=== PATIENT | male | born 1950 | race Caucasian/White ===

== ENCOUNTER 2017-01-11 12:35 | Inpatient (IN) | payer OTHER ==
[~2017-01-11] VITALS: Ht 177.8 cm; Wt 83.0 kg
[2017-01-11] MEDS ORDERED: LORAZEPAM 2 MG/ML VIAL ONE (12:39)
[2017-01-11] MEDS ORDERED: LORAZEPAM 2 MG/ML VIAL IV ONE (13:00)
--- NOTE | 2017-01-11 13:11 | RAD ---
Portable chest, 01/11/2017: History: Altered mental status Comparison is made to a study from 02/08/2016. The heart size and pulmonary vascularity are normal. There is mild tortuosity of the thoracic aorta. No pulmonary infiltrates are seen. There is no evidence of pleural fluid. IMPRESSION: No acute cardiopulmonary abnormality is detected.
--- NOTE | 2017-01-11 13:16 | RAD ---
Indication: Seizure. Altered mental status. Previous stroke. Technique: Noncontrast CT head was obtained. Comparison is from February 10, 2016. One or more of the following individualized dose reduction techniques were utilized for this examination: 1. Automated exposure control 2. Adjustment of the mA and/or kV according to patient size 3. Use of iterative reconstruction technique Findings: Infarcts involving the posterior right frontal, the right parietal, and the right temporal lobe have a chronic appearance although extent of infarct is increased from January. No definite acute infarct is identified. There is mild ex vacuo dilation of the right lateral ventricle. There is brain parenchymal volume loss and mild probable small vessel ischemic disease. There is no acute intracranial hemorrhage or extra-axial fluid collection. There is no mass effect or midline shift. There are vascular calcifications. The paranasal sinuses are clear. Impression: 1. Right MCA distribution infarct is well-defined and has a chronic appearance although has increased in size from the January 2016 exam. There is no CT evidence of an acute infarct. 2. Brain parenchymal volume loss and mild probable small vessel ischemic disease. 3. Consider MRI with seizure protocol if further workup is required.
[2017-01-11 13:21] LABS: INR 1.2 (0.8-1.1); PROTHROMBIN TIME PATIENT 14.7 SEC (11.7-14.0)
[2017-01-11 13:24] LABS: BASO # 0.1 x10^3/uL (0.0-0.2); BASO % 1 % (0-3); EOS % 3 % (0-3); HEMATOCRIT 47.3 % (39.0-53.0); HEMOGLOBIN 14.8 g/dL (13.0-17.5); LYMPH % 45 % (24-48); MEAN CORPUSCULAR HEMOGLOBIN 30 pg (25-35); MEAN CORPUSCULAR HGB CONC 31 g/dL (31-37); MEAN CORPUSCULAR VOLUME 97 fL (79-100); MONO % 7 % (0-9); NEUT % 45 % (31-73); PLATELET COUNT 230 x10^3/uL (140-400); RED BLOOD COUNT 4.88 x10^6/uL (4.30-5.70); RED CELL DISTRIBUTION WIDTH 14.6 % (11.5-14.5); WHITE BLOOD COUNT 15.5 x10^3/uL (4.0-11.0)
--- NOTE | 2017-01-11 13:50 | PHYS DOC ---
Past Medical History Past Medical History: CVA (RUE weakness) Additional Past Surgical Histo: knee surgery Alcohol Use: None Drug Use: None Adult General Chief Complaint Chief Complaint: NEURO SYMPTOMS/DEFICITS HPI HPI Patient is a 66 year old male who presents by EMS for witnessed new seizure. He ate lunch with and was in normal state of health. He then was in car and head head deviation to left and started having full body shaking. He was unresponsive and EMS was called. This lasted less than 5 min. and EMS are historians. He does not add to history. states no prior seizures. He had a 2nd seizure upon arrival lasting approx 1-2 min and self-aborted. He was given ativan IV 2mg at the end of this seizure. Review of Systems Review of Systems Unable to obtain secondary to altered mental status Current Medications Current Medications Current Medications Medications (Trade) Dose Ordered Sig/Robina Start Time Stop Time Status Last Admin Dose Admin Lorazepam (Ativan) 2 mg STK-MED ONCE 01/11/17 12:39 01/11/17 12:40 DC Lorazepam 2 mg 2 mg 1X ONCE 01/11/17 13:00 01/11/17 13:01 DC 01/11/17 12:41 2 MG Sodium Chloride (Iv Sodium Chloride 0.9% 1000ml Bag) 1,000 ml @ 1,000 mls/hr 1X ONCE 01/11/17 14:00 01/11/17 17:21 DC 01/11/17 13:38 1,000 MLS/HR Allergies Allergies Allergies Coded Allergies Type Severity Reaction Last Updated Verified No Known Drug Allergies 05/20/14 No Physical Exam Physical Exam Constitutional: Well developed, well nourished, no acute distress, non-toxic appearance. [] HENT: Normocephalic, atraumatic, bilateral external ears normal, oropharynx moist, no oral exudates, nose normal. [] Eyes: PERRLA, EOMI, conjunctiva normal, no discharge. [] Neck: Normal range of motion, no tenderness, supple. [] Cardiovascular:Heart rate regular rhythm [] Lungs & Thorax: Bilateral breath sounds clear to auscultation [] Abdomen: Bowel sounds normal, soft, no tenderness. [] Skin: Warm, dry, no erythema, no rash. [] Back: No tenderness, no CVA tenderness. [] Extremities: No tenderness, ROM intact, no edema. Moves RUE and bilateral legs to painful stimuli [] Neurologic: Opens eyes to pain, localizes pain, moans to pain. [] Psychologic: Unable to assess to altered mental status. [] Current Patient Data Vital Signs Vital Signs Date Time Temp Pulse Resp B/P Pulse Ox O2 Delivery O2 Flow Rate FiO2 01/11/17 15:00 110 26 164/76 91 Nasal Cannula 2 01/11/17 12:35 97.9 97.9 Lab Values Laboratory Tests Test 01/11/17 12:40 White Blood Count 15.5x10^3/uL (4.0-11.0) H Red Blood Count 4.88x10^6/uL (4.30-5.70) Hemoglobin 14.8g/dL (13.0-17.5) Hematocrit 47.3% (39.0-53.0) Mean Corpuscular Volume 97fL (79-100) Mean Corpuscular Hemoglobin 30pg (25-35) Mean Corpuscular Hemoglobin Concent 31g/dL (31-37) Red Cell Distribution Width 14.6% (11.5-14.5) H Platelet Count 230x10^3/uL (140-400) Neutrophils (%) (Auto) 45% (31-73) Lymphocytes (%) (Auto) 45% (24-48) Monocytes (%) (Auto) 7% (0-9) Eosinophils (%) (Auto) 3% (0-3) Basophils (%) (Auto) 1% (0-3) Neutrophils # (Auto) 6.9x10^3uL (1.8-7.7) Lymphocytes # (Auto) 7.0x10^3/uL (1.0-4.8) H Monocytes # (Auto) 1.0x10^3/uL (0.0-1.1) Eosinophils # (Auto) 0.4x10^3/uL (0.0-0.7) Basophils # (Auto) 0.1x10^3/uL (0.0-0.2) Prothrombin Time 14.7SEC (11.7-14.0) H Prothrombin Time INR 1.2 (0.8-1.1) H PTT 23SEC (24-38) L Sodium Level 154mmol/L (136-145) H Potassium Level 5.4mmol/L (3.5-5.1) H Chloride Level 111mmol/L (98-107) H Carbon Dioxide Level 17mmol/L (21-32) L Anion Gap 26 (6-14) H Blood Urea Nitrogen 39mg/dL (8-26) H Creatinine 2.4mg/dL (0.7-1.3) H Estimated GFR (Cockcroft-Gault) 27.1 Glucose Level 165mg/dL (70-99) H Calcium Level 10.7mg/dL (8.5-10.1) H Magnesium Level 2.4mg/dL (1.8-2.4) Total Bilirubin 0.4mg/dL (0.2-1.0) Direct Bilirubin < 0.1mg/dL (0.0-0.2) Aspartate Amino Transferase (AST) 22U/L (15-37) Alanine Aminotransferase (ALT) 32U/L (16-63) Alkaline Phosphatase 38U/L (46-116) L Ammonia 225mcmol/L (11-34) H Troponin I Quantitative 0.030ng/mL (0.000-0.055) LA-Kcg-N-Type Natriuretic Peptide 491pg/mL (0-124) H Total Protein 8.9g/dL (6.4-8.2) H Albumin 4.3g/dL (3.4-5.0) Laboratory Tests 01/11/17 12:40 Laboratory Tests 01/11/17 12:40 EKG EKG EKG as interpreted by me as sinus tachycardia, rate 104, no ST-T changes, normal intervals, no ectopy Radiology/Procedures Radiology/Procedures Chest xray as interpreted by me with no acute cardiopulmonary disease process Head CT without contrast Impression: 1. Right MCA distribution infarct is well-defined and has a chronic appearance although has increased in size from the January 2016 exam. There is no CT evidence of an acute infarct. 2. Brain parenchymal volume loss and mild probable small vessel ischemic disease. 3. Consider MRI with seizure protocol if further workup is required. DICTATED and SIGNED BY: RICK ANDUJAR MD DATE: 01/11/17 7308 Course & Med Decision Making Course & Med Decision Making Pertinent Labs and Imaging studies reviewed. (See chart for details) Has new onset seizure activity. He is not back to baseline, but is making improvements in mental status with spontaneous movement, eye opening and clear voice. He is responding to and following commands but is still confused. Imaging as above. Labs with gap acidosis and acute on chronic renal impairment. Will admit for further monitoring. Discussed case with Dr. Noble, who will admit. Neurology consult placed. Renetta Disclaimer Renetta Disclaimer This electronic medical record was generated, in whole or in part, using a voice recognition dictation system. Departure Departure Impression: Primary Impression: New onset seizure Disposition: ADMITTED INPATIENT Condition: GUARDED Referrals: EDI ROCHA MD (PCP) Tj SRINIVASAN MD Jan 11, 2017 13:50
[2017-01-11] MEDS ORDERED: IV NORMAL SALINE 1000ML BAG 1,000 ML IV ONE (14:00)
[2017-01-11 14:06] LABS: ANION GAP 26 (6-14); BLOOD UREA NITROGEN 39 mg/dL (8-26); CALCIUM 10.7 mg/dL (8.5-10.1); CARBON DIOXIDE 17 mmol/L (21-32); CHLORIDE 111 mmol/L (98-107); CREATININE 2.4 mg/dL (0.7-1.3); GFR 27.1; GLUCOSE 165 mg/dL (70-99); POTASSIUM 5.4 mmol/L (3.5-5.1); SODIUM 154 mmol/L (136-145)
[2017-01-11 14:39] LABS: ALBUMIN 4.3 g/dL (3.4-5.0); ALK PHOS 38 U/L (46-116); ALT (SGPT) 32 U/L (16-63); AST (SGOT) 22 U/L (15-37); TOTAL BILIRUBIN 0.4 mg/dL (0.2-1.0); TOTAL PROTEIN 8.9 g/dL (6.4-8.2)
[2017-01-11 14:40] LABS: DIRECT BILIRUBIN < 0.1 mg/dL (0.0-0.2); MAGNESIUM 2.4 mg/dL (1.8-2.4)
--- NOTE | 2017-01-11 14:58 | EKG ---
[facility] [address] [place] [address] Test Date: 2017-01-11 Test Time: 14:12:21 Pat Name: MIKE PRITCHARD Department: Room: Gender: M Lehr Attendant: : 1950 Requested By: Tj SRINIVASAN Order Number: [id number] Reading MD: Gloria Virgen Measurements Intervals [place] Rate: 104 P: -8 AK: 146 QRS: -42 QRSD: 80 T: 115 QT: 340 QTc: 453 Interpretive Statements SINUS TACHYCARDIA ABNORMAL LEFT AXIS DEVIATION LEFT ANTERIOR FASCICULAR BLOCK LVH WITH REPOLARIZATION ABNORMALITY Electronically Signed On 01-14-2017 19:50:11 CDT by Gloria Virgen
[2017-01-11] MEDS ORDERED: ONDANSETRON PF 4 MG/2 ML VIAL. IV PRN ×2 (15:30→19:00)
[2017-01-11] MEDS ORDERED: ACETAMINOPHEN 325 MG TABLET. PO PRN ×2 (15:30→19:00)
[2017-01-11] MEDS ORDERED: FENTANYL PF 100 MCG/2 ML VIAL. IV PRN (15:30)
[2017-01-11] MEDS ORDERED: IV NORMAL SALINE 1000ML BAG 1,000 ML IV SCH (16:00)
--- NOTE | 2017-01-11 16:24 | ACF ---
Admission Forms Criteria SEIZURE Clinical Indications for Admission to Inpatient Care (Place 'X' for any and all applicable criteria): Admission is indicated for seizure and ANY ONE of the following(1)(2)(3)(4)(5): [X]I. Inpatient admission required rather than observation care (Also use Seizure: Observation Care Criteria as appropriate) because of ANY ONE of the following: [ ]a) Altered mental status that is severe or persistent [ ]b) New focal neurologic deficit that is severe or persistent [ ]c) Metabolic disorder (eg, hypoglycemia, hyponatremia) that is severe or persistent [ ]d) Recurrent seizure [ ]e) Outpatient antiseizure regimen cannot be established (eg , patient cannot tolerate medication, initiation requires inpatient care) [X]f) Need for ongoing intravenous infusion of antiseizure medication [ ]g) Cardiac arrhythmias of immediate concern [ ]h) Cerebral bleeding, hydrocephalus, or vasospasm monitoring (14) [ ]i) Increased intracranial pressure or cerebral edema monitoring (15) [ ]j) Other treatment or monitoring requiring inpatient admission [ ]II. Status epilepticus [A] or repetitive seizures not controlled with emergent treatment (6)(8) [ ]III. Brain disorder (eg, tumor, edema, and hydrocephalus) that requiring monitoring or intervention available only at inpatient level of care. [ ]IV. Brain insult (eg, severe trauma, stroke, drug toxicity, or withdrawal) that requires monitoring or intervention available only at inpatient level of care (10)(11) Extended stay beyond goal length of stay may be needed for (22) [ ]a) Complications of status epilepticus [ ]b) Refractory status epilepticus [ ]c) Etiology-specific therapy for conditions such as ST[employer] LOSS [employer]ION MANAGER infection, head injury,eclampsia, severe metabolic abnormalities, and brain tumor [ ]d) Residual neurologic damage, [ ]e) Initiation of significant change to anticonvulsant treatment [ ]f) Older patients (65 years or older) [ ]g) Patient requiring intubation (eg, to protect airway) The original [employer] content created by [employer] has been revised. The portions of the content which have been revised are identified through the use of italic text or in bold, and [facility] [employer] has neither reviewed nor approved the modified material. All other unmodified content is copyright [facility] [employer]. Please see references footnoted in the original [facility] edition 2016 Admission Criteria Met?: Yes ROULA CROFT Jan 11, 2017 16:24
--- NOTE | 2017-01-11 16:49 | PDOC2 ---
NEUROLOGY CONSULT Date of Admission Date of Admission DATE: 01/11/17 TIME: 16:44 Reason for Consult Reason for Consult: Seizures Referring Physician Referring Physician: Dr. Noble PCP: Dr. 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 He had 2 seizures today. The first one occurred while he was in a car , his head turned to the left. There was convulsive activity, incontinence, and postictal state. Head turned to the left. The second occurred in the emergency department. There is no prior history of seizures. Past Medical History Cardiovascular: HTN, Hyperlipidemia CENTRAL NERVOUS SYSTEM: CVA Past Surgical History Past Surgical History: Other (knee) Family History Family History: No pertinent hx Social History Social History , quit smoking, no alcohol Current Medications Current Medications Current Medications Lorazepam (Ativan) 2 mg STK-MED ONCE .ROUTE ; Start 01/11/17 at 12:39; Stop at 12:40; Status DC Lorazepam 2 mg 2 mg 1X ONCE IV ; Start 01/11/17 at 13:00; Stop 01/11/17 at 13: 01; Status DC Sodium Chloride (Iv Sodium Chloride 0.9% 1000ml Bag) 1,000 ml @ 1,000 mls/hr 1X ONCE IV Last administered on 01/11/17t 13:38; Start 01/11/17 at 14:00; Stop 01/11/17 at 14:59; Status DC Ondansetron HCl (Zofran) 4 mg PRN Q8HRS PRN IV NAUSEA/VOMITING; Start 01/11/17 at 15:30; Stop 01/12/17 at 15:29 Fentanyl Citrate 50 mcg 50 mcg PRN Q2HR PRN IV PAIN; Start 01/11/17 at 15:30; Stop 01/12/17 at 15:29 Sodium Chloride (Iv Sodium Chloride 0.9% 1000ml Bag) 1,000 ml @ 150 mls/hr Q6H40M IV ; Start 01/11/17 at 16:00; Stop 01/12/17 at 15:59 Acetaminophen (Tylenol) 650 mg PRN Q4HRS PRN PO FEVER; Start 01/11/17 at 15:30 ; Stop 01/12/17 at 15:29 Allergies Allergies: Coded Allergies: No Known Drug Allergies (Unverified , 05/20/14) ROS Review of System Patient denies fevers, chills, weight loss, dyspnea, angina, abdominal pain, change in bowels, or dysuria. 14 point review of systems is negative. Physical Exam Physical Examination PHYSICAL EXAMINATION: Vital signs: see above. General appearance is normal and in no acute distress. He is shivering HEENT: Normocephalic and nontraumatic. Eyes, nose, ears, and throat are unremarkable. Neck is supple. No lymphadenopathy. No bruits are heard over the carotid artery. No crepitus. NEUROLOGICAL EXAMINATION: Mental Status Examination: Alert. Oriented to time, place, and person. Answers questions and follows commends. Pupils are equal round and reactive to light and accommodation. Extraocular movements are intact. Visual field exam shows no defect on the direct confrontation. Left central facial weakness. Uvula in the midline and the soft palate elevated symmetrically. No deviation of the tongue to any direction. Gross hearing is normal. Shoulder shrug normal. There is left 3/5 spastic hemiparesis. Deep tendon reflexes are 2+ all around. Plantar reflex is extensor on the left. Alternative movements are accurate. Gait not tested. Sensory exam shows no deficits. No cerebellar signs are elicited. Vitals VITALS Vital Signs Date Time Temp Pulse Resp B/P Pulse Ox O2 Delivery O2 Flow Rate FiO2 01/11/17 12:35 97.9 114 28 164/96 99 NonRebreather Mask 15 97.9 Labs Labs Laboratory Tests Test 01/11/17 12:40 White Blood Count 15.5x10^3/uL (4.0-11.0) Red Blood Count 4.88x10^6/uL (4.30-5.70) Hemoglobin 14.8g/dL (13.0-17.5) Hematocrit 47.3% (39.0-53.0) Mean Corpuscular Volume 97fL (79-100) Mean Corpuscular Hemoglobin 30pg (25-35) Mean Corpuscular Hemoglobin Concent 31g/dL (31-37) Red Cell Distribution Width 14.6% (11.5-14.5) Platelet Count 230x10^3/uL (140-400) Neutrophils (%) (Auto) 45% (31-73) Lymphocytes (%) (Auto) 45% (24-48) Monocytes (%) (Auto) 7% (0-9) Eosinophils (%) (Auto) 3% (0-3) Basophils (%) (Auto) 1% (0-3) Neutrophils # (Auto) 6.9x10^3uL (1.8-7.7) Lymphocytes # (Auto) 7.0x10^3/uL (1.0-4.8) Monocytes # (Auto) 1.0x10^3/uL (0.0-1.1) Eosinophils # (Auto) 0.4x10^3/uL (0.0-0.7) Basophils # (Auto) 0.1x10^3/uL (0.0-0.2) Prothrombin Time 14.7SEC (11.7-14.0) Prothromb Time International Ratio 1.2 (0.8-1.1) Activated Partial Thromboplast Time 23SEC (24-38) Sodium Level 154mmol/L (136-145) Potassium Level 5.4mmol/L (3.5-5.1) Chloride Level 111mmol/L (98-107) Carbon Dioxide Level 17mmol/L (21-32) Anion Gap 26 (6-14) Blood Urea Nitrogen 39mg/dL (8-26) Creatinine 2.4mg/dL (0.7-1.3) Estimated GFR (Cockcroft-Gault) 27.1 Glucose Level 165mg/dL (70-99) Calcium Level 10.7mg/dL (8.5-10.1) Magnesium Level 2.4mg/dL (1.8-2.4) Total Bilirubin 0.4mg/dL (0.2-1.0) Direct Bilirubin < 0.1mg/dL (0.0-0.2) Aspartate Amino Transf (AST/SGOT) 22U/L (15-37) Alanine Aminotransferase (ALT/SGPT) 32U/L (16-63) Alkaline Phosphatase 38U/L (46-116) Ammonia 225mcmol/L (11-34) Troponin I Quantitative 0.030ng/mL (0.000-0.055) FB-Dyp-K-Type Natriuretic Peptide 491pg/mL (0-124) Total Protein 8.9g/dL (6.4-8.2) Albumin 4.3g/dL (3.4-5.0) Laboratory Tests Test 01/11/17 12:40 White Blood Count 15.5x10^3/uL (4.0-11.0) Red Blood Count 4.88x10^6/uL (4.30-5.70) Hemoglobin 14.8g/dL (13.0-17.5) Hematocrit 47.3% (39.0-53.0) Mean Corpuscular Volume 97fL (79-100) Mean Corpuscular Hemoglobin 30pg (25-35) Mean Corpuscular Hemoglobin Concent 31g/dL (31-37) Red Cell Distribution Width 14.6% (11.5-14.5) Platelet Count 230x10^3/uL (140-400) Neutrophils (%) (Auto) 45% (31-73) Lymphocytes (%) (Auto) 45% (24-48) Monocytes (%) (Auto) 7% (0-9) Eosinophils (%) (Auto) 3% (0-3) Basophils (%) (Auto) 1% (0-3) Neutrophils # (Auto) 6.9x10^3uL (1.8-7.7) Lymphocytes # (Auto) 7.0x10^3/uL (1.0-4.8) Monocytes # (Auto) 1.0x10^3/uL (0.0-1.1) Eosinophils # (Auto) 0.4x10^3/uL (0.0-0.7) Basophils # (Auto) 0.1x10^3/uL (0.0-0.2) Prothrombin Time 14.7SEC (11.7-14.0) Prothromb Time International Ratio 1.2 (0.8-1.1) Activated Partial Thromboplast Time 23SEC (24-38) Sodium Level 154mmol/L (136-145) Potassium Level 5.4mmol/L (3.5-5.1) Chloride Level 111mmol/L (98-107) Carbon Dioxide Level 17mmol/L (21-32) Anion Gap 26 (6-14) Blood Urea Nitrogen 39mg/dL (8-26) Creatinine 2.4mg/dL (0.7-1.3) Estimated GFR (Cockcroft-Gault) 27.1 Glucose Level 165mg/dL (70-99) Calcium Level 10.7mg/dL (8.5-10.1) Magnesium Level 2.4mg/dL (1.8-2.4) Total Bilirubin 0.4mg/dL (0.2-1.0) Direct Bilirubin < 0.1mg/dL (0.0-0.2) Aspartate Amino Transf (AST/SGOT) 22U/L (15-37) Alanine Aminotransferase (ALT/SGPT) 32U/L (16-63) Alkaline Phosphatase 38U/L (46-116) Ammonia 225mcmol/L (11-34) Troponin I Quantitative 0.030ng/mL (0.000-0.055) VR-Jiy-J-Type Natriuretic Peptide 491pg/mL (0-124) Total Protein 8.9g/dL (6.4-8.2) Albumin 4.3g/dL (3.4-5.0) Images Images CT head: Findings: Infarcts involving the posterior right frontal, the right parietal, and the right temporal lobe have a chronic appearance although extent of infarct is increased from January. No definite acute infarct is identified. There is mild ex vacuo dilation of the right lateral ventricle. There is brain parenchymal volume loss and mild probable small vessel ischemic disease. There is no acute intracranial hemorrhage or extra-axial fluid collection. There is no mass effect or midline shift. There are vascular calcifications. The paranasal sinuses are clear. Impression: 1. Right MCA distribution infarct is well-defined and has a chronic appearance although has increased in size from the January 2016 exam. There is no CT evidence of an acute infarct. 2. Brain parenchymal volume loss and mild probable small vessel ischemic disease. 3. Consider MRI with seizure protocol if further workup is required. Assessment/Plan Assessment/Plan Impression: New seizure, most likely related to right middle cerebral artery stroke last year. He had 2 seizures today. Recommendations: I discussed risks, benefits, alternatives, and side effects and will start the patient on levetiracetam. MRI of the brain Electroencephalogram Thank you for letting me help with the patient's care. PARIS GARCIA MD Jan 11, 2017 16:49
[2017-01-11] MEDS ORDERED: CLOP75TA PO (17:13)
[2017-01-11] MEDS ORDERED: LISI40TA PO (17:13)
--- NOTE | 2017-01-11 17:23 | PDOC1 ---
History and Physical Past Medical History Cardiovascular: HTN, Hyperlipidemia Pulmonary: No pertinent hx CENTRAL NERVOUS SYSTEM: CVA GI: No pertinent hx Hepatobiliary: No pertinent hx Psych: No pertinent hx Rheumatologic: No pertinent hx Infectious disease: No pertinent hx Renal/: Chronic renal insuff Past Surgical History Past Surgical History: Other (knee) Family History Family History: No Significant Social History ALCOHOL: rare Drugs: None Current Problem List Problem List Problems Medical Problems: (1) New onset seizure Status: Acute Current Medications Current Medications Current Medications Medications (Trade) Dose Ordered Sig/Robina Start Time Stop Time Status Last Admin Dose Admin Acetaminophen (Tylenol) 650 mg PRN Q4HRS PRN 01/11/17 15:30 01/12/17 15:29 Fentanyl Citrate 50 mcg 50 mcg PRN Q2HR PRN 01/11/17 15:30 01/12/17 15:29 Levetiracetam (Keppra) 500 mg BID 01/11/17 21:00 Lorazepam (Ativan) 2 mg 1X ONCE 01/11/17 13:00 01/11/17 13:01 DC Ondansetron HCl (Zofran) 4 mg PRN Q8HRS PRN 01/11/17 15:30 01/12/17 15:29 Sodium Chloride (Iv Sodium Chloride 0.9% 1000ml Bag) 1,000 ml @ 150 mls/hr Q6H40M 01/11/17 16:00 01/12/17 15:59 Allergies Allergies Allergies Coded Allergies Type Severity Reaction Last Updated Verified No Known Drug Allergies 05/20/14 No ROS Review of System seizure like activity not able to obtain due to severity of his illness. Physical Exam Physical Exam GEN.: No apparent distress. lethargic, not able answer questions. HEENT: Head is normocephalic, atraumatic, NECK: Supple. no jvd LUNGS: Clear to auscultation. normal airflow HEART: RRR, S1, S2 present. Peripheral pulses intact ABDOMEN: Soft, nontender. Positive bowel sounds. EXTREMITIES: Without any cyanosis. NEUROLOGIC: drowsy, PSYCHIATRIC: SKIN: no visible skin lesions. Vitals Vitals Vital Signs Date Time Temp Pulse Resp B/P Pulse Ox O2 Delivery O2 Flow Rate FiO2 01/11/17 12:35 97.9 114 28 164/96 99 NonRebreather Mask 15 97.9 Labs Labs Laboratory Tests Test 01/11/17 12:40 White Blood Count 15.5x10^3/uL (4.0-11.0) Red Blood Count 4.88x10^6/uL (4.30-5.70) Hemoglobin 14.8g/dL (13.0-17.5) Hematocrit 47.3% (39.0-53.0) Mean Corpuscular Volume 97fL (79-100) Mean Corpuscular Hemoglobin 30pg (25-35) Mean Corpuscular Hemoglobin Concent 31g/dL (31-37) Red Cell Distribution Width 14.6% (11.5-14.5) Platelet Count 230x10^3/uL (140-400) Neutrophils (%) (Auto) 45% (31-73) Lymphocytes (%) (Auto) 45% (24-48) Monocytes (%) (Auto) 7% (0-9) Eosinophils (%) (Auto) 3% (0-3) Basophils (%) (Auto) 1% (0-3) Neutrophils # (Auto) 6.9x10^3uL (1.8-7.7) Lymphocytes # (Auto) 7.0x10^3/uL (1.0-4.8) Monocytes # (Auto) 1.0x10^3/uL (0.0-1.1) Eosinophils # (Auto) 0.4x10^3/uL (0.0-0.7) Basophils # (Auto) 0.1x10^3/uL (0.0-0.2) Prothrombin Time 14.7SEC (11.7-14.0) Prothromb Time International Ratio 1.2 (0.8-1.1) Activated Partial Thromboplast Time 23SEC (24-38) Sodium Level 154mmol/L (136-145) Potassium Level 5.4mmol/L (3.5-5.1) Chloride Level 111mmol/L (98-107) Carbon Dioxide Level 17mmol/L (21-32) Anion Gap 26 (6-14) Blood Urea Nitrogen 39mg/dL (8-26) Creatinine 2.4mg/dL (0.7-1.3) Estimated GFR (Cockcroft-Gault) 27.1 Glucose Level 165mg/dL (70-99) Calcium Level 10.7mg/dL (8.5-10.1) Magnesium Level 2.4mg/dL (1.8-2.4) Total Bilirubin 0.4mg/dL (0.2-1.0) Direct Bilirubin < 0.1mg/dL (0.0-0.2) Aspartate Amino Transf (AST/SGOT) 22U/L (15-37) Alanine Aminotransferase (ALT/SGPT) 32U/L (16-63) Alkaline Phosphatase 38U/L (46-116) Ammonia 225mcmol/L (11-34) Troponin I Quantitative 0.030ng/mL (0.000-0.055) HB-Qie-X-Type Natriuretic Peptide 491pg/mL (0-124) Total Protein 8.9g/dL (6.4-8.2) Albumin 4.3g/dL (3.4-5.0) Laboratory Tests Test 01/11/17 12:40 White Blood Count 15.5x10^3/uL (4.0-11.0) Red Blood Count 4.88x10^6/uL (4.30-5.70) Hemoglobin 14.8g/dL (13.0-17.5) Hematocrit 47.3% (39.0-53.0) Mean Corpuscular Volume 97fL (79-100) Mean Corpuscular Hemoglobin 30pg (25-35) Mean Corpuscular Hemoglobin Concent 31g/dL (31-37) Red Cell Distribution Width 14.6% (11.5-14.5) Platelet Count 230x10^3/uL (140-400) Neutrophils (%) (Auto) 45% (31-73) Lymphocytes (%) (Auto) 45% (24-48) Monocytes (%) (Auto) 7% (0-9) Eosinophils (%) (Auto) 3% (0-3) Basophils (%) (Auto) 1% (0-3) Neutrophils # (Auto) 6.9x10^3uL (1.8-7.7) Lymphocytes # (Auto) 7.0x10^3/uL (1.0-4.8) Monocytes # (Auto) 1.0x10^3/uL (0.0-1.1) Eosinophils # (Auto) 0.4x10^3/uL (0.0-0.7) Basophils # (Auto) 0.1x10^3/uL (0.0-0.2) Prothrombin Time 14.7SEC (11.7-14.0) Prothromb Time International Ratio 1.2 (0.8-1.1) Activated Partial Thromboplast Time 23SEC (24-38) Sodium Level 154mmol/L (136-145) Potassium Level 5.4mmol/L (3.5-5.1) Chloride Level 111mmol/L (98-107) Carbon Dioxide Level 17mmol/L (21-32) Anion Gap 26 (6-14) Blood Urea Nitrogen 39mg/dL (8-26) Creatinine 2.4mg/dL (0.7-1.3) Estimated GFR (Cockcroft-Gault) 27.1 Glucose Level 165mg/dL (70-99) Calcium Level 10.7mg/dL (8.5-10.1) Magnesium Level 2.4mg/dL (1.8-2.4) Total Bilirubin 0.4mg/dL (0.2-1.0) Direct Bilirubin < 0.1mg/dL (0.0-0.2) Aspartate Amino Transf (AST/SGOT) 22U/L (15-37) Alanine Aminotransferase (ALT/SGPT) 32U/L (16-63) Alkaline Phosphatase 38U/L (46-116) Ammonia 225mcmol/L (11-34) Troponin I Quantitative 0.030ng/mL (0.000-0.055) XU-Hud-C-Type Natriuretic Peptide 491pg/mL (0-124) Total Protein 8.9g/dL (6.4-8.2) Albumin 4.3g/dL (3.4-5.0) VTE Prophylaxis Ordered VTE Prophylaxis Devices: Yes VTE Pharmacological Prophylaxi: No COLEEN DIAZ MD Jan 11, 2017 17:23
[2017-01-11] MEDS ORDERED: IV DEXTROSE 5 %-0.45 % NACL 1,000 ML IV SCH (17:30)
[2017-01-11 18:15] VITALS: BP 201/106
[2017-01-11] MEDS ORDERED: hydrALAZINE 20 MG/ML VIAL. IVP ONE (18:15)
[2017-01-11] MEDS ORDERED: ALBUTEROL SULFATE 2.5 MG/3 ML NEBU. NEB PRN (19:00)
[2017-01-11] MEDS ORDERED: HYDROCODONE/APAP 5/325MG TABLET. PO PRN (19:00)
[2017-01-11] MEDS ORDERED: hydrALAZINE 20 MG/ML VIAL. IVP PRN (19:00)
[2017-01-11 19:01] VITALS: BP 136/74
[2017-01-11 19:30] VITALS: BP 118/61
[2017-01-11] MEDS ORDERED: ATOR40TA59 PO (20:06)
[2017-01-11 20:49] LABS: CREATININE 2.1 mg/dL (0.7-1.3); GFR 31.6; POTASSIUM 4.1 mmol/L (3.5-5.1)
[2017-01-11] MEDS ORDERED: LEVETIRACETAM 500 MG TABLET PO SCH (21:00)
[2017-01-11] MEDS ORDERED: LEVETIRACETAM 500 MG in IV NORMAL SALINE 100ML 100 ML IV SCH (21:00)
--- NOTE | 2017-01-11 21:29 | HP ---
ADMIT DATE: 01/11/2017 CHIEF COMPLAINT: Seizure like activity. HISTORY OF PRESENT ILLNESS: A 66-year-old male patient with prior history of right-sided MCA nearly 1 year ago, had two seizure activity today. The patient and his went for lunch today at around this afternoon and he developed generalized tonic-clonic seizures which lasted for nearly 1-2 minutes with turning of his head to one side with increased convulsive activity of the upper and lower extremities and also noted to have some incontinence and postictal confusion. denies any other changes and recent lifestyle changes. Denies any trauma or fever or chills. He received some Ativan in the ER and at the time of examination, the patient is drowsy, not able to provide history. Most of the history is obtained from the chart and the patient's at bedside. PAST MEDICAL HISTORY: 1. 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 2. Hypertension. 3. Hyperlipidemia. PAST SURGICAL HISTORY: Knee surgeries. FAMILY HISTORY: Questionable hypertension. SOCIAL HISTORY: No smoking, no alcohol, no drug abuse. Lives with his . ALLERGIES: NKDA. REVIEW OF SYSTEMS AND PHYSICAL EXAMINATION: Please see my electronic H and P. LABORATORY DATA: WBC 15.5, hemoglobin is 14.8, hematocrit is 47, MCV is 97, platelets 230. Chemistry: Sodium is 154, potassium is 5.4, chloride is 111, carbon dioxide is 17, gap is 26, BUN is 39, creatinine is 2.4, baseline is 1.4; glucose 165. Ammonia 225. Troponin is 0.030. ProBNP 491. IMAGING STUDIES: 1. Chest x-ray: No acute cardiopulmonary process seen. 2. Head CT, right MCA distribution infarct well defined, chronic appearance. 3. Brain parenchymal volume loss. ASSESSMENT: 1. Accelerated hypertension present on admission. 2. New seizure like activity. 3. Hypernatremia. 4. Increased ammonia. 5. Hyperkalemia. 6. Acute kidney injury. PLAN: 1. Received 20 of IV hydralazine x 1. I will recheck blood pressure again. 2. will bring home medications. At this time, she is not sure what medications he takes. 3. Start IV of normal saline with D5. Check BMP q. 3 hours and also consult Nephrology. 4. Monitor electrolytes, CBC, BMP closely. 5. Recheck ammonia in a.m. The patient is not able to swallow any liquids at this time. It is difficult to administer any Kayexalate or lactulose at this time. 6. We will consult Gastroenterology if symptoms persist. 7. Gap acidosis, likely due to seizure activity. 8. No DVT prophylaxis. 9. Prognosis is guarded. I explained to the patient and his at bedside. All questions were answered. COLEEN DIAZ MD DR: RUSSELL/flaca JOB#: [id number] / [id number] SHAN
[2017-01-11 23:50] VITALS: BP 135/67
[2017-01-12] MEDS: IV NORMAL SALINE 1000ML BAG 1,000 ML IV SCH ×2 (00:28→12:56)
[2017-01-12 03:57] VITALS: BP 129/66
[2017-01-12 04:24] LABS: CALCIUM 8.9 mg/dL (8.5-10.1); CREATININE 1.9 mg/dL (0.7-1.3); GFR 35.4; POTASSIUM 4.1 mmol/L (3.5-5.1)
[2017-01-12 07:00] VITALS: BP 134/57
[2017-01-12 07:11] LABS: BASO # 0.1 x10^3/uL (0.0-0.2); BASO % 1 % (0-3); EOS % 0 % (0-3); HEMATOCRIT 37.8 % (39.0-53.0); HEMOGLOBIN 12.4 g/dL (13.0-17.5); LYMPH # 1.7 x10^3/uL (1.0-4.8); LYMPH % 14 % (24-48); MEAN CORPUSCULAR HEMOGLOBIN 30 pg (25-35); MEAN CORPUSCULAR HGB CONC 33 g/dL (31-37); MEAN CORPUSCULAR VOLUME 93 fL (79-100); MONO % 6 % (0-9); NEUT % 79 % (31-73); PLATELET COUNT 173 x10^3/uL (140-400); RED BLOOD COUNT 4.08 x10^6/uL (4.30-5.70); RED CELL DISTRIBUTION WIDTH 14.1 % (11.5-14.5); WHITE BLOOD COUNT 12.2 x10^3/uL (4.0-11.0)
[2017-01-12 07:22] LABS: CALCIUM 9.1 mg/dL (8.5-10.1); GFR 33.4; POTASSIUM 4.6 mmol/L (3.5-5.1)
[2017-01-12] MEDS ORDERED: LEVETIRACETAM 500 MG TABLET PO SCH (09:00)
--- NOTE | 2017-01-12 10:35 | PDOC ---
PROGRESS NOTES Chief Complaint Chief Complaint 1. Accelerated hypertension present on admission. 2. New seizure like activity. 3. Hypernatremia. 4. Increased ammonia. 5. Hyperkalemia. 6. Acute kidney injury. Plan Monitor renal functions PT/OT labs improved, NH3, k Normal, possible labs errors. continue Keppra D/W resume home medications History of Present Illness History of Present Illness better no chest pain no fever no seizure. Vitals Vitals Vital Signs Date Time Temp Pulse Resp B/P Pulse Ox O2 Delivery O2 Flow Rate FiO2 01/12/17 07:00 97.5 63 20 134/57 94 Nasal Cannula 2.0 97.5 Physical Exam General: Alert, Oriented X3 Heart: Normal S1, Normal S2 Lungs: Clear Abdomen: Normal bowel sounds Extremities: No clubbing Labs LABS Laboratory Tests Test 01/11/17 12:40 01/11/17 20:35 01/11/17 21:01 01/12/17 03:37 White Blood Count 15.5x10^3/uL (4.0-11.0) Red Blood Count 4.88x10^6/uL (4.30-5.70) Hemoglobin 14.8g/dL (13.0-17.5) Hematocrit 47.3% (39.0-53.0) Mean Corpuscular Volume 97fL (79-100) Mean Corpuscular Hemoglobin 30pg (25-35) Mean Corpuscular Hemoglobin Concent 31g/dL (31-37) Red Cell Distribution Width 14.6% (11.5-14.5) Platelet Count 230x10^3/uL (140-400) Neutrophils (%) (Auto) 45% (31-73) Lymphocytes (%) (Auto) 45% (24-48) Monocytes (%) (Auto) 7% (0-9) Eosinophils (%) (Auto) 3% (0-3) Basophils (%) (Auto) 1% (0-3) Neutrophils # (Auto) 6.9x10^3uL (1.8-7.7) Lymphocytes # (Auto) 7.0x10^3/uL (1.0-4.8) Monocytes # (Auto) 1.0x10^3/uL (0.0-1.1) Eosinophils # (Auto) 0.4x10^3/uL (0.0-0.7) Basophils # (Auto) 0.1x10^3/uL (0.0-0.2) Prothrombin Time 14.7SEC (11.7-14.0) Prothromb Time International Ratio 1.2 (0.8-1.1) Activated Partial Thromboplast Time 23SEC (24-38) Sodium Level 154mmol/L (136-145) 143mmol/L (136-145) 144mmol/L (136-145) Potassium Level 5.4mmol/L (3.5-5.1) 4.1mmol/L (3.5-5.1) 4.1mmol/L (3.5-5.1) Chloride Level 111mmol/L (98-107) 108mmol/L (98-107) 110mmol/L (98-107) Carbon Dioxide Level 17mmol/L (21-32) 23mmol/L (21-32) 23mmol/L (21-32) Anion Gap 26 (6-14) 12 (6-14) 11 (6-14) Blood Urea Nitrogen 39mg/dL (8-26) 35mg/dL (8-26) 32mg/dL (8-26) Creatinine 2.4mg/dL (0.7-1.3) 2.1mg/dL (0.7-1.3) 1.9mg/dL (0.7-1.3) Estimated GFR (Cockcroft-Gault) 27.1 31.6 35.4 Glucose Level 165mg/dL (70-99) 175mg/dL (70-99) 124mg/dL (70-99) Calcium Level 10.7mg/dL (8.5-10.1) 9.0mg/dL (8.5-10.1) 8.9mg/dL (8.5-10.1) Magnesium Level 2.4mg/dL (1.8-2.4) Total Bilirubin 0.4mg/dL (0.2-1.0) Direct Bilirubin < 0.1mg/dL (0.0-0.2) Aspartate Amino Transf (AST/SGOT) 22U/L (15-37) Alanine Aminotransferase (ALT/SGPT) 32U/L (16-63) Alkaline Phosphatase 38U/L (46-116) Ammonia 225mcmol/L (11-34) Troponin I Quantitative 0.030ng/mL (0.000-0.055) FS-Rxx-H-Type Natriuretic Peptide 491pg/mL (0-124) Total Protein 8.9g/dL (6.4-8.2) Albumin 4.3g/dL (3.4-5.0) Glucose (Fingerstick) 190mg/dL (70-99) Test 01/12/17 07:00 01/12/17 08:10 White Blood Count 12.2x10^3/uL (4.0-11.0) Red Blood Count 4.08x10^6/uL (4.30-5.70) Hemoglobin 12.4g/dL (13.0-17.5) Hematocrit 37.8% (39.0-53.0) Mean Corpuscular Volume 93fL (79-100) Mean Corpuscular Hemoglobin 30pg (25-35) Mean Corpuscular Hemoglobin Concent 33g/dL (31-37) Red Cell Distribution Width 14.1% (11.5-14.5) Platelet Count 173x10^3/uL (140-400) Neutrophils (%) (Auto) 79% (31-73) Lymphocytes (%) (Auto) 14% (24-48) Monocytes (%) (Auto) 6% (0-9) Eosinophils (%) (Auto) 0% (0-3) Basophils (%) (Auto) 1% (0-3) Neutrophils # (Auto) 9.6x10^3uL (1.8-7.7) Lymphocytes # (Auto) 1.7x10^3/uL (1.0-4.8) Monocytes # (Auto) 0.8x10^3/uL (0.0-1.1) Eosinophils # (Auto) 0.0x10^3/uL (0.0-0.7) Basophils # (Auto) 0.1x10^3/uL (0.0-0.2) Sodium Level 147mmol/L (136-145) Potassium Level 4.6mmol/L (3.5-5.1) Chloride Level 112mmol/L (98-107) Carbon Dioxide Level 25mmol/L (21-32) Anion Gap 10 (6-14) Blood Urea Nitrogen 32mg/dL (8-26) Creatinine 2.0mg/dL (0.7-1.3) Estimated GFR (Cockcroft-Gault) 33.4 Glucose Level 113mg/dL (70-99) Calcium Level 9.1mg/dL (8.5-10.1) Ammonia 18mcmol/L (11-34) Glucose (Fingerstick) 108mg/dL (70-99) Assessment and Plan Assessmemt and Plan Problems Medical Problems: (1) New onset seizure Status: Acute Problems: Comment Review of Relevant I have reviewed the following items unruly (where applicable) has been applied. Labs Laboratory Tests Test 01/11/17 12:40 01/11/17 20:35 01/11/17 21:01 01/12/17 03:37 White Blood Count 15.5x10^3/uL (4.0-11.0) Red Blood Count 4.88x10^6/uL (4.30-5.70) Hemoglobin 14.8g/dL (13.0-17.5) Hematocrit 47.3% (39.0-53.0) Mean Corpuscular Volume 97fL (79-100) Mean Corpuscular Hemoglobin 30pg (25-35) Mean Corpuscular Hemoglobin Concent 31g/dL (31-37) Red Cell Distribution Width 14.6% (11.5-14.5) Platelet Count 230x10^3/uL (140-400) Neutrophils (%) (Auto) 45% (31-73) Lymphocytes (%) (Auto) 45% (24-48) Monocytes (%) (Auto) 7% (0-9) Eosinophils (%) (Auto) 3% (0-3) Basophils (%) (Auto) 1% (0-3) Neutrophils # (Auto) 6.9x10^3uL (1.8-7.7) Lymphocytes # (Auto) 7.0x10^3/uL (1.0-4.8) Monocytes # (Auto) 1.0x10^3/uL (0.0-1.1) Eosinophils # (Auto) 0.4x10^3/uL (0.0-0.7) Basophils # (Auto) 0.1x10^3/uL (0.0-0.2) Prothrombin Time 14.7SEC (11.7-14.0) Prothromb Time International Ratio 1.2 (0.8-1.1) Activated Partial Thromboplast Time 23SEC (24-38) Sodium Level 154mmol/L (136-145) 143mmol/L (136-145) 144mmol/L (136-145) Potassium Level 5.4mmol/L (3.5-5.1) 4.1mmol/L (3.5-5.1) 4.1mmol/L (3.5-5.1) Chloride Level 111mmol/L (98-107) 108mmol/L (98-107) 110mmol/L (98-107) Carbon Dioxide Level 17mmol/L (21-32) 23mmol/L (21-32) 23mmol/L (21-32) Anion Gap 26 (6-14) 12 (6-14) 11 (6-14) Blood Urea Nitrogen 39mg/dL (8-26) 35mg/dL (8-26) 32mg/dL (8-26) Creatinine 2.4mg/dL (0.7-1.3) 2.1mg/dL (0.7-1.3) 1.9mg/dL (0.7-1.3) Estimated GFR (Cockcroft-Gault) 27.1 31.6 35.4 Glucose Level 165mg/dL (70-99) 175mg/dL (70-99) 124mg/dL (70-99) Calcium Level 10.7mg/dL (8.5-10.1) 9.0mg/dL (8.5-10.1) 8.9mg/dL (8.5-10.1) Magnesium Level 2.4mg/dL (1.8-2.4) Total Bilirubin 0.4mg/dL (0.2-1.0) Direct Bilirubin < 0.1mg/dL (0.0-0.2) Aspartate Amino Transf (AST/SGOT) 22U/L (15-37) Alanine Aminotransferase (ALT/SGPT) 32U/L (16-63) Alkaline Phosphatase 38U/L (46-116) Ammonia 225mcmol/L (11-34) Troponin I Quantitative 0.030ng/mL (0.000-0.055) YZ-Xab-D-Type Natriuretic Peptide 491pg/mL (0-124) Total Protein 8.9g/dL (6.4-8.2) Albumin 4.3g/dL (3.4-5.0) Glucose (Fingerstick) 190mg/dL (70-99) Test 01/12/17 07:00 01/12/17 08:10 White Blood Count 12.2x10^3/uL (4.0-11.0) Red Blood Count 4.08x10^6/uL (4.30-5.70) Hemoglobin 12.4g/dL (13.0-17.5) Hematocrit 37.8% (39.0-53.0) Mean Corpuscular Volume 93fL (79-100) Mean Corpuscular Hemoglobin 30pg (25-35) Mean Corpuscular Hemoglobin Concent 33g/dL (31-37) Red Cell Distribution Width 14.1% (11.5-14.5) Platelet Count 173x10^3/uL (140-400) Neutrophils (%) (Auto) 79% (31-73) Lymphocytes (%) (Auto) 14% (24-48) Monocytes (%) (Auto) 6% (0-9) Eosinophils (%) (Auto) 0% (0-3) Basophils (%) (Auto) 1% (0-3) Neutrophils # (Auto) 9.6x10^3uL (1.8-7.7) Lymphocytes # (Auto) 1.7x10^3/uL (1.0-4.8) Monocytes # (Auto) 0.8x10^3/uL (0.0-1.1) Eosinophils # (Auto) 0.0x10^3/uL (0.0-0.7) Basophils # (Auto) 0.1x10^3/uL (0.0-0.2) Sodium Level 147mmol/L (136-145) Potassium Level 4.6mmol/L (3.5-5.1) Chloride Level 112mmol/L (98-107) Carbon Dioxide Level 25mmol/L (21-32) Anion Gap 10 (6-14) Blood Urea Nitrogen 32mg/dL (8-26) Creatinine 2.0mg/dL (0.7-1.3) Estimated GFR (Cockcroft-Gault) 33.4 Glucose Level 113mg/dL (70-99) Calcium Level 9.1mg/dL (8.5-10.1) Ammonia 18mcmol/L (11-34) Glucose (Fingerstick) 108mg/dL (70-99) Laboratory Tests Test 01/11/17 12:40 01/11/17 20:35 01/11/17 21:01 01/12/17 03:37 White Blood Count 15.5x10^3/uL (4.0-11.0) Red Blood Count 4.88x10^6/uL (4.30-5.70) Hemoglobin 14.8g/dL (13.0-17.5) Hematocrit 47.3% (39.0-53.0) Mean Corpuscular Volume 97fL (79-100) Mean Corpuscular Hemoglobin 30pg (25-35) Mean Corpuscular Hemoglobin Concent 31g/dL (31-37) Red Cell Distribution Width 14.6% (11.5-14.5) Platelet Count 230x10^3/uL (140-400) Neutrophils (%) (Auto) 45% (31-73) Lymphocytes (%) (Auto) 45% (24-48) Monocytes (%) (Auto) 7% (0-9) Eosinophils (%) (Auto) 3% (0-3) Basophils (%) (Auto) 1% (0-3) Neutrophils # (Auto) 6.9x10^3uL (1.8-7.7) Lymphocytes # (Auto) 7.0x10^3/uL (1.0-4.8) Monocytes # (Auto) 1.0x10^3/uL (0.0-1.1) Eosinophils # (Auto) 0.4x10^3/uL (0.0-0.7) Basophils # (Auto) 0.1x10^3/uL (0.0-0.2) Prothrombin Time 14.7SEC (11.7-14.0) Prothromb Time International Ratio 1.2 (0.8-1.1) Activated Partial Thromboplast Time 23SEC (24-38) Sodium Level 154mmol/L (136-145) 143mmol/L (136-145) 144mmol/L (136-145) Potassium Level 5.4mmol/L (3.5-5.1) 4.1mmol/L (3.5-5.1) 4.1mmol/L (3.5-5.1) Chloride Level 111mmol/L (98-107) 108mmol/L (98-107) 110mmol/L (98-107) Carbon Dioxide Level 17mmol/L (21-32) 23mmol/L (21-32) 23mmol/L (21-32) Anion Gap 26 (6-14) 12 (6-14) 11 (6-14) Blood Urea Nitrogen 39mg/dL (8-26) 35mg/dL (8-26) 32mg/dL (8-26) Creatinine 2.4mg/dL (0.7-1.3) 2.1mg/dL (0.7-1.3) 1.9mg/dL (0.7-1.3) Estimated GFR (Cockcroft-Gault) 27.1 31.6 35.4 Glucose Level 165mg/dL (70-99) 175mg/dL (70-99) 124mg/dL (70-99) Calcium Level 10.7mg/dL (8.5-10.1) 9.0mg/dL (8.5-10.1) 8.9mg/dL (8.5-10.1) Magnesium Level 2.4mg/dL (1.8-2.4) Total Bilirubin 0.4mg/dL (0.2-1.0) Direct Bilirubin < 0.1mg/dL (0.0-0.2) Aspartate Amino Transf (AST/SGOT) 22U/L (15-37) Alanine Aminotransferase (ALT/SGPT) 32U/L (16-63) Alkaline Phosphatase 38U/L (46-116) Ammonia 225mcmol/L (11-34) Troponin I Quantitative 0.030ng/mL (0.000-0.055) QN-Cwd-X-Type Natriuretic Peptide 491pg/mL (0-124) Total Protein 8.9g/dL (6.4-8.2) Albumin 4.3g/dL (3.4-5.0) Glucose (Fingerstick) 190mg/dL (70-99) Test 01/12/17 07:00 01/12/17 08:10 White Blood Count 12.2x10^3/uL (4.0-11.0) Red Blood Count 4.08x10^6/uL (4.30-5.70) Hemoglobin 12.4g/dL (13.0-17.5) Hematocrit 37.8% (39.0-53.0) Mean Corpuscular Volume 93fL (79-100) Mean Corpuscular Hemoglobin 30pg (25-35) Mean Corpuscular Hemoglobin Concent 33g/dL (31-37) Red Cell Distribution Width 14.1% (11.5-14.5) Platelet Count 173x10^3/uL (140-400) Neutrophils (%) (Auto) 79% (31-73) Lymphocytes (%) (Auto) 14% (24-48) Monocytes (%) (Auto) 6% (0-9) Eosinophils (%) (Auto) 0% (0-3) Basophils (%) (Auto) 1% (0-3) Neutrophils # (Auto) 9.6x10^3uL (1.8-7.7) Lymphocytes # (Auto) 1.7x10^3/uL (1.0-4.8) Monocytes # (Auto) 0.8x10^3/uL (0.0-1.1) Eosinophils # (Auto) 0.0x10^3/uL (0.0-0.7) Basophils # (Auto) 0.1x10^3/uL (0.0-0.2) Sodium Level 147mmol/L (136-145) Potassium Level 4.6mmol/L (3.5-5.1) Chloride Level 112mmol/L (98-107) Carbon Dioxide Level 25mmol/L (21-32) Anion Gap 10 (6-14) Blood Urea Nitrogen 32mg/dL (8-26) Creatinine 2.0mg/dL (0.7-1.3) Estimated GFR (Cockcroft-Gault) 33.4 Glucose Level 113mg/dL (70-99) Calcium Level 9.1mg/dL (8.5-10.1) Ammonia 18mcmol/L (11-34) Glucose (Fingerstick) 108mg/dL (70-99) Medications Current Medications Lorazepam (Ativan) 2 mg STK-MED ONCE .ROUTE ; Start 01/11/17 at 12:39; Stop at 12:40; Status DC Lorazepam 2 mg 2 mg 1X ONCE IV Last administered on 01/11/17 12:41; Start at 13:00; Stop 01/11/17 at 13:01; Status DC Sodium Chloride (Iv Sodium Chloride 0.9% 1000ml Bag) 1,000 ml @ 1,000 mls/hr 1X ONCE IV Last administered on 01/11/17 13:38; Start 01/11/17 at 14:00; Stop 01/11/17 at 17:21; Status DC Ondansetron HCl (Zofran) 4 mg PRN Q8HRS PRN IV NAUSEA/VOMITING; Start 01/11/17 at 15:30; Stop 01/12/17 at 15:29 Fentanyl Citrate 50 mcg 50 mcg PRN Q2HR PRN IV PAIN; Start 01/11/17 at 15:30; Stop 01/12/17 at 15:29 Sodium Chloride (Iv Sodium Chloride 0.9% 1000ml Bag) 1,000 ml @ 150 mls/hr Q6H40M IV ; Start 01/11/17 at 16:00; Stop 01/11/17 at 17:21; Status DC Acetaminophen (Tylenol) 650 mg PRN Q4HRS PRN PO FEVER Last administered on 01/12 01:35; Start 01/11/17 at 15:30; Stop 01/12/17 at 15:29 Levetiracetam 500 mg 500 mg BID PO ; Start 01/11/17 at 21:00; Stop 01/11/17 at 21:00; Status DC Dextrose/Sodium Chloride (Iv D5% - 1/2 NS) 1,000 ml @ 75 mls/hr [id number] IV Last administered on 01/11/17 18:41; Start 01/11/17 at 17:30; Stop 01/11/17 at 23:07; Status DC Hydralazine HCl 20 mg 20 mg 1X ONCE IVP Last administered on 01/11/17 18:15; Start 01/11/17 at 18:15; Stop 01/11/17 at 18:16; Status DC Levetiracetam/ Sodium Chloride (Keppra/Iv Sodium Chloride 0.9% 100ml) 105 ml @ 400 mls/hr Q12HR IV Last administered on 01/11/17 22:33; Start 01/11/17 at 21: 00; Stop 01/12/17 at 08:58; Status DC Acetaminophen (Tylenol) 325 mg PRN Q6HRS PRN PO MILD PAIN / TEMP; Start at 19:00 Acetaminophen/ Hydrocodone Bitart (Lortab 5/325) 1 tab PRN Q6HRS PRN PO MODERATE TO SEVERE PAIN; Start 01/11/17 at 19:00 Hydralazine HCl (Apresoline) 10 mg PRN Q4HRS PRN IVP ELEVATED BP, SEE COMMENTS ; Start 01/11/17 at 19:00 Ondansetron HCl (Zofran) 4 mg PRN Q8HRS PRN IV NAUSEA/VOMITING; Start 01/11/17 at 19:00 Albuterol Sulfate 2.5 mg 2.5 mg PRN Q4HRS PRN NEB SHORTNESS OF BREATH; Start at 19:00 Sodium Chloride (Iv Sodium Chloride 0.9% 1000ml Bag) 1,000 ml @ 75 mls/hr [id number] IV Last administered on 01/12/17 00:28; Start 01/11/17 at 23:15 Levetiracetam (Keppra) 500 mg BID PO Last administered on 01/12/17 09:02; Start 01/12/17 at 09:00 Active Scripts Active Reported Atorvastatin Calcium 40 Mg Tablet PO DAILY Lisinopril 40 Mg Tablet 1 Tab PO DAILY Clopidogrel (Clopidogrel Bisulfate) 75 Mg Tablet 1 Tab PO DAILY Vitals/I & O Vital Sign - Last 24 Hours 01/11/17 01/11/17 01/11/17 01/11/17 12:35 12:45 13:00 13:30 Temp 97.9 97.9 Pulse 114 114 118 108 Resp 28 28 22 B/P 164/96 213/74 169/84 84/63 Pulse Ox 99 99 96 96 O2 Delivery NonRebreather Mask NonRebreather Mask Nasal Cannula Nasal Cannula O2 Flow Rate 15 15 2 2 01/11/17 01/11/17 01/11/17 01/11/17 14:00 14:30 15:00 18:15 Pulse 106 106 110 Resp 31 31 26 B/P 137/60 135/64 164/76 205/106 Pulse Ox 99 100 91 O2 Delivery Nasal Cannula Nasal Cannula Nasal Cannula O2 Flow Rate 2 2 2 01/11/17 01/11/17 01/11/17 01/11/17 18:15 19:01 19:28 19:30 Temp 99.9 99.3 99.9 99.3 Pulse 113 126 Resp 20 20 B/P 201/106 136/74 118/61 Pulse Ox 95 97 O2 Delivery Room Air Nasal Cannula Nasal Cannula O2 Flow Rate 2.0 2.0 01/11/17 01/11/17 01/12/17 01/12/17 20:00 23:50 03:57 07:00 Temp 100.0 98.7 97.5 100.0 98.7 97.5 Pulse 114 67 63 Resp 22 20 20 B/P 135/67 129/66 134/57 Pulse Ox 98 97 94 O2 Delivery Nasal Cannula Nasal Cannula Nasal Cannula Nasal Cannula O2 Flow Rate 2.0 2.0 2.0 2.0 Intake and Output 01/11/17 01/11/17 01/12/17 15:00 23:00 07:00 Intake Total 1000 ml 300 ml Output Total 850 ml Balance 1000 ml -550 ml COLEEN DIAZ MD Jan 12, 2017 10:34
[2017-01-12 10:43] VITALS: BP 139/61
[2017-01-12] MEDS ORDERED: CLOPIDOGREL BISULFATE 75 MG TABLET PO SCH (12:00)
[2017-01-12] MEDS ORDERED: LISINOPRIL 40 MG TABLET. PO SCH (12:00)
--- NOTE | 2017-01-12 12:10 | PDOC ---
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 None since admission Plan Levetiracetam. Await brain MRI and EEG Subjective No complaints, was drowsy yesterday evening and levetiracetam was switched to IV , but now patient willing to take orally. Objective Vital Signs Date Time Temp Pulse Resp B/P Pulse Ox O2 Delivery O2 Flow Rate FiO2 01/12/17 10:43 97.9 69 22 139/61 94 Nasal Cannula 2.0 97.9 Intake and Output 01/12/17 07:00 Intake Total 1300 ml Output Total 850 ml Balance 450 ml Intake Oral 300 ml IV Total 1000 ml Output Urine Total 850 ml PHYSICAL EXAM Alert. Oriented to time, place and person. PERRL. EOMI. CN: no focal findings. Muscle tone: Increased on the left. Muscle strength: 4/5 left hemiparesis DTR: 2+ Plantar reflex: Extensor on left Gait: not examined in bed. Sensory exam: no abnormal findings. No cerebellar signs elicited. Review of Relevant I have reviewed the following items unruly (where applicable) has been applied. Labs Laboratory Tests Test 01/11/17 12:40 01/11/17 20:35 01/11/17 21:01 01/12/17 03:37 White Blood Count 15.5x10^3/uL (4.0-11.0) Red Blood Count 4.88x10^6/uL (4.30-5.70) Hemoglobin 14.8g/dL (13.0-17.5) Hematocrit 47.3% (39.0-53.0) Mean Corpuscular Volume 97fL (79-100) Mean Corpuscular Hemoglobin 30pg (25-35) Mean Corpuscular Hemoglobin Concent 31g/dL (31-37) Red Cell Distribution Width 14.6% (11.5-14.5) Platelet Count 230x10^3/uL (140-400) Neutrophils (%) (Auto) 45% (31-73) Lymphocytes (%) (Auto) 45% (24-48) Monocytes (%) (Auto) 7% (0-9) Eosinophils (%) (Auto) 3% (0-3) Basophils (%) (Auto) 1% (0-3) Neutrophils # (Auto) 6.9x10^3uL (1.8-7.7) Lymphocytes # (Auto) 7.0x10^3/uL (1.0-4.8) Monocytes # (Auto) 1.0x10^3/uL (0.0-1.1) Eosinophils # (Auto) 0.4x10^3/uL (0.0-0.7) Basophils # (Auto) 0.1x10^3/uL (0.0-0.2) Prothrombin Time 14.7SEC (11.7-14.0) Prothromb Time International Ratio 1.2 (0.8-1.1) Activated Partial Thromboplast Time 23SEC (24-38) Sodium Level 154mmol/L (136-145) 143mmol/L (136-145) 144mmol/L (136-145) Potassium Level 5.4mmol/L (3.5-5.1) 4.1mmol/L (3.5-5.1) 4.1mmol/L (3.5-5.1) Chloride Level 111mmol/L (98-107) 108mmol/L (98-107) 110mmol/L (98-107) Carbon Dioxide Level 17mmol/L (21-32) 23mmol/L (21-32) 23mmol/L (21-32) Anion Gap 26 (6-14) 12 (6-14) 11 (6-14) Blood Urea Nitrogen 39mg/dL (8-26) 35mg/dL (8-26) 32mg/dL (8-26) Creatinine 2.4mg/dL (0.7-1.3) 2.1mg/dL (0.7-1.3) 1.9mg/dL (0.7-1.3) Estimated GFR (Cockcroft-Gault) 27.1 31.6 35.4 Glucose Level 165mg/dL (70-99) 175mg/dL (70-99) 124mg/dL (70-99) Calcium Level 10.7mg/dL (8.5-10.1) 9.0mg/dL (8.5-10.1) 8.9mg/dL (8.5-10.1) Magnesium Level 2.4mg/dL (1.8-2.4) Total Bilirubin 0.4mg/dL (0.2-1.0) Direct Bilirubin < 0.1mg/dL (0.0-0.2) Aspartate Amino Transf (AST/SGOT) 22U/L (15-37) Alanine Aminotransferase (ALT/SGPT) 32U/L (16-63) Alkaline Phosphatase 38U/L (46-116) Ammonia 225mcmol/L (11-34) Troponin I Quantitative 0.030ng/mL (0.000-0.055) KP-Otl-A-Type Natriuretic Peptide 491pg/mL (0-124) Total Protein 8.9g/dL (6.4-8.2) Albumin 4.3g/dL (3.4-5.0) Glucose (Fingerstick) 190mg/dL (70-99) Test 01/12/17 07:00 01/12/17 08:10 White Blood Count 12.2x10^3/uL (4.0-11.0) Red Blood Count 4.08x10^6/uL (4.30-5.70) Hemoglobin 12.4g/dL (13.0-17.5) Hematocrit 37.8% (39.0-53.0) Mean Corpuscular Volume 93fL (79-100) Mean Corpuscular Hemoglobin 30pg (25-35) Mean Corpuscular Hemoglobin Concent 33g/dL (31-37) Red Cell Distribution Width 14.1% (11.5-14.5) Platelet Count 173x10^3/uL (140-400) Neutrophils (%) (Auto) 79% (31-73) Lymphocytes (%) (Auto) 14% (24-48) Monocytes (%) (Auto) 6% (0-9) Eosinophils (%) (Auto) 0% (0-3) Basophils (%) (Auto) 1% (0-3) Neutrophils # (Auto) 9.6x10^3uL (1.8-7.7) Lymphocytes # (Auto) 1.7x10^3/uL (1.0-4.8) Monocytes # (Auto) 0.8x10^3/uL (0.0-1.1) Eosinophils # (Auto) 0.0x10^3/uL (0.0-0.7) Basophils # (Auto) 0.1x10^3/uL (0.0-0.2) Sodium Level 147mmol/L (136-145) Potassium Level 4.6mmol/L (3.5-5.1) Chloride Level 112mmol/L (98-107) Carbon Dioxide Level 25mmol/L (21-32) Anion Gap 10 (6-14) Blood Urea Nitrogen 32mg/dL (8-26) Creatinine 2.0mg/dL (0.7-1.3) Estimated GFR (Cockcroft-Gault) 33.4 Glucose Level 113mg/dL (70-99) Calcium Level 9.1mg/dL (8.5-10.1) Ammonia 18mcmol/L (11-34) Glucose (Fingerstick) 108mg/dL (70-99) Laboratory Tests Test 01/11/17 12:40 01/11/17 20:35 01/11/17 21:01 01/12/17 03:37 White Blood Count 15.5x10^3/uL (4.0-11.0) Red Blood Count 4.88x10^6/uL (4.30-5.70) Hemoglobin 14.8g/dL (13.0-17.5) Hematocrit 47.3% (39.0-53.0) Mean Corpuscular Volume 97fL (79-100) Mean Corpuscular Hemoglobin 30pg (25-35) Mean Corpuscular Hemoglobin Concent 31g/dL (31-37) Red Cell Distribution Width 14.6% (11.5-14.5) Platelet Count 230x10^3/uL (140-400) Neutrophils (%) (Auto) 45% (31-73) Lymphocytes (%) (Auto) 45% (24-48) Monocytes (%) (Auto) 7% (0-9) Eosinophils (%) (Auto) 3% (0-3) Basophils (%) (Auto) 1% (0-3) Neutrophils # (Auto) 6.9x10^3uL (1.8-7.7) Lymphocytes # (Auto) 7.0x10^3/uL (1.0-4.8) Monocytes # (Auto) 1.0x10^3/uL (0.0-1.1) Eosinophils # (Auto) 0.4x10^3/uL (0.0-0.7) Basophils # (Auto) 0.1x10^3/uL (0.0-0.2) Prothrombin Time 14.7SEC (11.7-14.0) Prothromb Time International Ratio 1.2 (0.8-1.1) Activated Partial Thromboplast Time 23SEC (24-38) Sodium Level 154mmol/L (136-145) 143mmol/L (136-145) 144mmol/L (136-145) Potassium Level 5.4mmol/L (3.5-5.1) 4.1mmol/L (3.5-5.1) 4.1mmol/L (3.5-5.1) Chloride Level 111mmol/L (98-107) 108mmol/L (98-107) 110mmol/L (98-107) Carbon Dioxide Level 17mmol/L (21-32) 23mmol/L (21-32) 23mmol/L (21-32) Anion Gap 26 (6-14) 12 (6-14) 11 (6-14) Blood Urea Nitrogen 39mg/dL (8-26) 35mg/dL (8-26) 32mg/dL (8-26) Creatinine 2.4mg/dL (0.7-1.3) 2.1mg/dL (0.7-1.3) 1.9mg/dL (0.7-1.3) Estimated GFR (Cockcroft-Gault) 27.1 31.6 35.4 Glucose Level 165mg/dL (70-99) 175mg/dL (70-99) 124mg/dL (70-99) Calcium Level 10.7mg/dL (8.5-10.1) 9.0mg/dL (8.5-10.1) 8.9mg/dL (8.5-10.1) Magnesium Level 2.4mg/dL (1.8-2.4) Total Bilirubin 0.4mg/dL (0.2-1.0) Direct Bilirubin < 0.1mg/dL (0.0-0.2) Aspartate Amino Transf (AST/SGOT) 22U/L (15-37) Alanine Aminotransferase (ALT/SGPT) 32U/L (16-63) Alkaline Phosphatase 38U/L (46-116) Ammonia 225mcmol/L (11-34) Troponin I Quantitative 0.030ng/mL (0.000-0.055) BZ-Zgg-Z-Type Natriuretic Peptide 491pg/mL (0-124) Total Protein 8.9g/dL (6.4-8.2) Albumin 4.3g/dL (3.4-5.0) Glucose (Fingerstick) 190mg/dL (70-99) Test 01/12/17 07:00 01/12/17 08:10 White Blood Count 12.2x10^3/uL (4.0-11.0) Red Blood Count 4.08x10^6/uL (4.30-5.70) Hemoglobin 12.4g/dL (13.0-17.5) Hematocrit 37.8% (39.0-53.0) Mean Corpuscular Volume 93fL (79-100) Mean Corpuscular Hemoglobin 30pg (25-35) Mean Corpuscular Hemoglobin Concent 33g/dL (31-37) Red Cell Distribution Width 14.1% (11.5-14.5) Platelet Count 173x10^3/uL (140-400) Neutrophils (%) (Auto) 79% (31-73) Lymphocytes (%) (Auto) 14% (24-48) Monocytes (%) (Auto) 6% (0-9) Eosinophils (%) (Auto) 0% (0-3) Basophils (%) (Auto) 1% (0-3) Neutrophils # (Auto) 9.6x10^3uL (1.8-7.7) Lymphocytes # (Auto) 1.7x10^3/uL (1.0-4.8) Monocytes # (Auto) 0.8x10^3/uL (0.0-1.1) Eosinophils # (Auto) 0.0x10^3/uL (0.0-0.7) Basophils # (Auto) 0.1x10^3/uL (0.0-0.2) Sodium Level 147mmol/L (136-145) Potassium Level 4.6mmol/L (3.5-5.1) Chloride Level 112mmol/L (98-107) Carbon Dioxide Level 25mmol/L (21-32) Anion Gap 10 (6-14) Blood Urea Nitrogen 32mg/dL (8-26) Creatinine 2.0mg/dL (0.7-1.3) Estimated GFR (Cockcroft-Gault) 33.4 Glucose Level 113mg/dL (70-99) Calcium Level 9.1mg/dL (8.5-10.1) Ammonia 18mcmol/L (11-34) Glucose (Fingerstick) 108mg/dL (70-99) Medications Current Medications Lorazepam (Ativan) 2 mg STK-MED ONCE .ROUTE ; Start 01/11/17 at 12:39; Stop at 12:40; Status DC Lorazepam 2 mg 2 mg 1X ONCE IV Last administered on 01/11/17 12:41; Start at 13:00; Stop 01/11/17 at 13:01; Status DC Sodium Chloride (Iv Sodium Chloride 0.9% 1000ml Bag) 1,000 ml @ 1,000 mls/hr 1X ONCE IV Last administered on 01/11/17 13:38; Start 01/11/17 at 14:00; Stop 01/11/17 at 17:21; Status DC Ondansetron HCl (Zofran) 4 mg PRN Q8HRS PRN IV NAUSEA/VOMITING; Start 01/11/17 at 15:30; Stop 01/12/17 at 15:29 Fentanyl Citrate 50 mcg 50 mcg PRN Q2HR PRN IV PAIN; Start 01/11/17 at 15:30; Stop 01/12/17 at 15:29 Sodium Chloride (Iv Sodium Chloride 0.9% 1000ml Bag) 1,000 ml @ 150 mls/hr Q6H40M IV ; Start 01/11/17 at 16:00; Stop 01/11/17 at 17:21; Status DC Acetaminophen (Tylenol) 650 mg PRN Q4HRS PRN PO FEVER Last administered on 01/12 01:35; Start 01/11/17 at 15:30; Stop 01/12/17 at 15:29 Levetiracetam 500 mg 500 mg BID PO ; Start 01/11/17 at 21:00; Stop 01/11/17 at 21:00; Status DC Dextrose/Sodium Chloride (Iv D5% - 1/2 NS) 1,000 ml @ 75 mls/hr [id number] IV Last administered on 01/11/17 18:41; Start 01/11/17 at 17:30; Stop 01/11/17 at 23:07; Status DC Hydralazine HCl 20 mg 20 mg 1X ONCE IVP Last administered on 01/11/17 18:15; Start 01/11/17 at 18:15; Stop 01/11/17 at 18:16; Status DC Levetiracetam/ Sodium Chloride (Keppra/Iv Sodium Chloride 0.9% 100ml) 105 ml @ 400 mls/hr Q12HR IV Last administered on 01/11/17 22:33; Start 01/11/17 at 21: 00; Stop 01/12/17 at 08:58; Status DC Acetaminophen (Tylenol) 325 mg PRN Q6HRS PRN PO MILD PAIN / TEMP; Start at 19:00 Acetaminophen/ Hydrocodone Bitart (Lortab 5/325) 1 tab PRN Q6HRS PRN PO MODERATE TO SEVERE PAIN; Start 01/11/17 at 19:00 Hydralazine HCl (Apresoline) 10 mg PRN Q4HRS PRN IVP ELEVATED BP, SEE COMMENTS ; Start 01/11/17 at 19:00 Ondansetron HCl (Zofran) 4 mg PRN Q8HRS PRN IV NAUSEA/VOMITING; Start 01/11/17 at 19:00 Albuterol Sulfate 2.5 mg 2.5 mg PRN Q4HRS PRN NEB SHORTNESS OF BREATH; Start at 19:00 Sodium Chloride (Iv Sodium Chloride 0.9% 1000ml Bag) 1,000 ml @ 75 mls/hr [id number] IV Last administered on 01/12/17 00:28; Start 01/11/17 at 23:15 Levetiracetam (Keppra) 500 mg BID PO Last administered on 01/12/17 09:02; Start 01/12/17 at 09:00 Atorvastatin Calcium (Lipitor) 40 mg QHS PO ; Start 01/12/17 at 21:00 Clopidogrel Bisulfate (Plavix) 75 mg DAILY PO ; Start 01/12/17 at 12:00 Lisinopril (Prinivil) 40 mg DAILY PO ; Start 01/12/17 at 12:00 Active Scripts Active Reported Atorvastatin Calcium 40 Mg Tablet PO DAILY Lisinopril 40 Mg Tablet 1 Tab PO DAILY Clopidogrel (Clopidogrel Bisulfate) 75 Mg Tablet 1 Tab PO DAILY Vitals/I & O Vital Sign - Last 24 Hours 01/11/17 01/11/17 01/11/17 01/11/17 12:35 12:45 13:00 13:30 Temp 97.9 97.9 Pulse 114 114 118 108 Resp 28 28 28 22 B/P 164/96 213/74 169/84 84/63 Pulse Ox 99 99 96 96 O2 Delivery NonRebreather Mask NonRebreather Mask Nasal Cannula Nasal Cannula O2 Flow Rate 15 15 2 2 01/11/17 01/11/17 01/11/17 01/11/17 14:00 14:30 15:00 18:15 Pulse 106 106 110 Resp 31 31 26 B/P 137/60 135/64 164/76 205/106 Pulse Ox 99 100 91 O2 Delivery Nasal Cannula Nasal Cannula Nasal Cannula O2 Flow Rate 2 2 2 01/11/17 01/11/17 01/11/17 01/11/17 18:15 19:01 19:28 19:30 Temp 99.9 99.3 99.9 99.3 Pulse 113 126 Resp 20 20 B/P 201/106 136/74 118/61 Pulse Ox 95 97 O2 Delivery Room Air Nasal Cannula Nasal Cannula O2 Flow Rate 2.0 2.0 01/11/17 01/11/17 01/12/17 01/12/17 20:00 23:50 03:57 07:00 Temp 100.0 98.7 97.5 100.0 98.7 97.5 Pulse 114 67 63 Resp 22 20 20 B/P 135/67 129/66 134/57 Pulse Ox 98 97 94 O2 Delivery Nasal Cannula Nasal Cannula Nasal Cannula Nasal Cannula O2 Flow Rate 2.0 2.0 2.0 2.0 01/12/17 10:43 Temp 97.9 97.9 Pulse 69 Resp 22 B/P 139/61 Pulse Ox 94 O2 Delivery Nasal Cannula O2 Flow Rate 2.0 Intake and Output 01/11/17 01/11/1701/12/17 15:00 23:00 07:00 Intake Total 1000 ml 300 ml Output Total 850 ml Balance 1000 ml -550 ml PARIS GARCIA MD Jan 12, 2017 12:10
--- NOTE | 2017-01-12 12:13 | PDOC2 ---
CONSULT Date of Consult Date of Consult DATE: 01/12/17 TIME: 12:09 Reason for Consult Reason for Consult: LOS Referring Physician Referring Physician: JOE Identification/Chief Complaint Chief Complaint SEIZURE Source Source: Chart review History of Present Illness Reason for Visit: THIS IS A 66 YR OLD ADMITTED WITH A SEIZURE. HE HAS SOME CONFUSION. CT HEAD IS NEG FOR ACUTE FINDING. CR IS 2.4. OLD RECORDS SHOWED A CR OF 1.4-1.6 C/W STAGE 3 CKD. HE DOES HAVE A LONG HX OF HTN. NO HX OF ANY STONE DZ. NO NEPHROTOXIN HX NOTED Past Medical History Cardiovascular: HTN, Hyperlipidemia Pulmonary: No pertinent hx CENTRAL NERVOUS SYSTEM: CVA GI: No pertinent hx Hepatobiliary: No pertinent hx Psych: No pertinent hx Rheumatologic: No pertinent hx Infectious disease: No pertinent hx Renal/: Chronic renal insuff Past Surgical History Past Surgical History: Other (knee) Family History Family History: No Significant Social History ALCOHOL: rare Drugs: None Lives: with Family Current Problem List Problem List Problems Medical Problems: (1) New onset seizure Status: Acute Current Medications Current Medications Current Medications Lorazepam (Ativan) 2 mg STK-MED ONCE .ROUTE ; Start 01/11/17 at 12:39; Stop at 12:40; Status DC Lorazepam 2 mg 2 mg 1X ONCE IV Last administered on 01/11/17 12:41; Start at 13:00; Stop 01/11/17 at 13:01; Status DC Sodium Chloride (Iv Sodium Chloride 0.9% 1000ml Bag) 1,000 ml @ 1,000 mls/hr 1X ONCE IV Last administered on 01/11/17 13:38; Start 01/11/17 at 14:00; Stop 01/11/17 at 17:21; Status DC Ondansetron HCl (Zofran) 4 mg PRN Q8HRS PRN IV NAUSEA/VOMITING; Start 01/11/17 at 15:30; Stop 01/12/17 at 15:29 Fentanyl Citrate 50 mcg 50 mcg PRN Q2HR PRN IV PAIN; Start 01/11/17 at 15:30; Stop 01/12/17 at 15:29 Sodium Chloride (Iv Sodium Chloride 0.9% 1000ml Bag) 1,000 ml @ 150 mls/hr Q6H40M IV ; Start 01/11/17 at 16:00; Stop 01/11/17 at 17:21; Status DC Acetaminophen (Tylenol) 650 mg PRN Q4HRS PRN PO FEVER Last administered on 01/12 01:35; Start 01/11/17 at 15:30; Stop 01/12/17 at 15:29 Levetiracetam 500 mg 500 mg BID PO ; Start 01/11/17 at 21:00; Stop 01/11/17 at 21:00; Status DC Dextrose/Sodium Chloride (Iv D5% - 1/2 NS) 1,000 ml @ 75 mls/hr [id number] IV Last administered on 01/11/17 18:41; Start 01/11/17 at 17:30; Stop 01/11/17 at 23:07; Status DC Hydralazine HCl 20 mg 20 mg 1X ONCE IVP Last administered on 01/11/17 18:15; Start 01/11/17 at 18:15; Stop 01/11/17 at 18:16; Status DC Levetiracetam/ Sodium Chloride (Keppra/Iv Sodium Chloride 0.9% 100ml) 105 ml @ 400 mls/hr Q12HR IV Last administered on 01/11/17 22:33; Start 01/11/17 at 21: 00; Stop 01/12/17 at 08:58; Status DC Acetaminophen (Tylenol) 325 mg PRN Q6HRS PRN PO MILD PAIN / TEMP; Start at 19:00 Acetaminophen/ Hydrocodone Bitart (Lortab 5/325) 1 tab PRN Q6HRS PRN PO MODERATE TO SEVERE PAIN; Start 01/11/17 at 19:00 Hydralazine HCl (Apresoline) 10 mg PRN Q4HRS PRN IVP ELEVATED BP, SEE COMMENTS ; Start 01/11/17 at 19:00 Ondansetron HCl (Zofran) 4 mg PRN Q8HRS PRN IV NAUSEA/VOMITING; Start 01/11/17 at 19:00 Albuterol Sulfate 2.5 mg 2.5 mg PRN Q4HRS PRN NEB SHORTNESS OF BREATH; Start at 19:00 Sodium Chloride (Iv Sodium Chloride 0.9% 1000ml Bag) 1,000 ml @ 75 mls/hr [id number] IV Last administered on 01/12/17 00:28; Start 01/11/17 at 23:15 Levetiracetam (Keppra) 500 mg BID PO Last administered on 01/12/17 09:02; Start 01/12/17 at 09:00 Atorvastatin Calcium (Lipitor) 40 mg QHS PO ; Start 01/12/17 at 21:00 Clopidogrel Bisulfate (Plavix) 75 mg DAILY PO ; Start 01/12/17 at 12:00 Lisinopril (Prinivil) 40 mg DAILY PO ; Start 01/12/17 at 12:00 Active Scripts Active Reported Atorvastatin Calcium 40 Mg Tablet PO DAILY Lisinopril 40 Mg Tablet 1 Tab PO DAILY Clopidogrel (Clopidogrel Bisulfate) 75 Mg Tablet 1 Tab PO DAILY Allergies Allergies: Coded Allergies: No Known Drug Allergies (Unverified , 05/20/14) ROS Review of System CONFUSED Physical Exam General: Cooperative, No acute distress HEENT: Atraumatic, PERRLA Lungs: Clear to auscultation Heart: Regular rate, Normal S1, Normal S2 Abdomen: Normal bowel sounds, No tenderness Extremities: No edema Skin: No breakdown Neuro: Other (SOMNOLENT) Psych/Mental Status: Other (SLEEPING) MUSCULOSKELETAL: No deformity Vitals VITALS Vital Signs Date Time Temp Pulse Resp B/P Pulse Ox O2 Delivery O2 Flow Rate FiO2 01/12/17 10:43 97.9 69 22 139/61 94 Nasal Cannula 2.0 97.9 Labs Labs Laboratory Tests Test 01/11/17 12:40 01/11/17 20:35 01/11/17 21:01 01/12/17 03:37 White Blood Count 15.5x10^3/uL (4.0-11.0) Red Blood Count 4.88x10^6/uL (4.30-5.70) Hemoglobin 14.8g/dL (13.0-17.5) Hematocrit 47.3% (39.0-53.0) Mean Corpuscular Volume 97fL (79-100) Mean Corpuscular Hemoglobin 30pg (25-35) Mean Corpuscular Hemoglobin Concent 31g/dL (31-37) Red Cell Distribution Width 14.6% (11.5-14.5) Platelet Count 230x10^3/uL (140-400) Neutrophils (%) (Auto) 45% (31-73) Lymphocytes (%) (Auto) 45% (24-48) Monocytes (%) (Auto) 7% (0-9) Eosinophils (%) (Auto) 3% (0-3) Basophils (%) (Auto) 1% (0-3) Neutrophils # (Auto) 6.9x10^3uL (1.8-7.7) Lymphocytes # (Auto) 7.0x10^3/uL (1.0-4.8) Monocytes # (Auto) 1.0x10^3/uL (0.0-1.1) Eosinophils # (Auto) 0.4x10^3/uL (0.0-0.7) Basophils # (Auto) 0.1x10^3/uL (0.0-0.2) Prothrombin Time 14.7SEC (11.7-14.0) Prothromb Time International Ratio 1.2 (0.8-1.1) Activated Partial Thromboplast Time 23SEC (24-38) Sodium Level 154mmol/L (136-145) 143mmol/L (136-145) 144mmol/L (136-145) Potassium Level 5.4mmol/L (3.5-5.1) 4.1mmol/L (3.5-5.1) 4.1mmol/L (3.5-5.1) Chloride Level 111mmol/L (98-107) 108mmol/L (98-107) 110mmol/L (98-107) Carbon Dioxide Level 17mmol/L (21-32) 23mmol/L (21-32) 23mmol/L (21-32) Anion Gap 26 (6-14) 12 (6-14) 11 (6-14) Blood Urea Nitrogen 39mg/dL (8-26) 35mg/dL (8-26) 32mg/dL (8-26) Creatinine 2.4mg/dL (0.7-1.3) 2.1mg/dL (0.7-1.3) 1.9mg/dL (0.7-1.3) Estimated GFR (Cockcroft-Gault) 27.1 31.6 35.4 Glucose Level 165mg/dL (70-99) 175mg/dL (70-99) 124mg/dL (70-99) Calcium Level 10.7mg/dL (8.5-10.1) 9.0mg/dL (8.5-10.1) 8.9mg/dL (8.5-10.1) Magnesium Level 2.4mg/dL (1.8-2.4) Total Bilirubin 0.4mg/dL (0.2-1.0) Direct Bilirubin < 0.1mg/dL (0.0-0.2) Aspartate Amino Transf (AST/SGOT) 22U/L (15-37) Alanine Aminotransferase (ALT/SGPT) 32U/L (16-63) Alkaline Phosphatase 38U/L (46-116) Ammonia 225mcmol/L (11-34) Troponin I Quantitative 0.030ng/mL (0.000-0.055) TF-Bzc-U-Type Natriuretic Peptide 491pg/mL (0-124) Total Protein 8.9g/dL (6.4-8.2) Albumin 4.3g/dL (3.4-5.0) Glucose (Fingerstick) 190mg/dL (70-99) Test 01/12/17 07:00 01/12/17 08:10 White Blood Count 12.2x10^3/uL (4.0-11.0) Red Blood Count 4.08x10^6/uL (4.30-5.70) Hemoglobin 12.4g/dL (13.0-17.5) Hematocrit 37.8% (39.0-53.0) Mean Corpuscular Volume 93fL (79-100) Mean Corpuscular Hemoglobin 30pg (25-35) Mean Corpuscular Hemoglobin Concent 33g/dL (31-37) Red Cell Distribution Width 14.1% (11.5-14.5) Platelet Count 173x10^3/uL (140-400) Neutrophils (%) (Auto) 79% (31-73) Lymphocytes (%) (Auto) 14% (24-48) Monocytes (%) (Auto) 6% (0-9) Eosinophils (%) (Auto) 0% (0-3) Basophils (%) (Auto) 1% (0-3) Neutrophils # (Auto) 9.6x10^3uL (1.8-7.7) Lymphocytes # (Auto) 1.7x10^3/uL (1.0-4.8) Monocytes # (Auto) 0.8x10^3/uL (0.0-1.1) Eosinophils # (Auto) 0.0x10^3/uL (0.0-0.7) Basophils # (Auto) 0.1x10^3/uL (0.0-0.2) Sodium Level 147mmol/L (136-145) Potassium Level 4.6mmol/L (3.5-5.1) Chloride Level 112mmol/L (98-107) Carbon Dioxide Level 25mmol/L (21-32) Anion Gap 10 (6-14) Blood Urea Nitrogen 32mg/dL (8-26) Creatinine 2.0mg/dL (0.7-1.3) Estimated GFR (Cockcroft-Gault) 33.4 Glucose Level 113mg/dL (70-99) Calcium Level 9.1mg/dL (8.5-10.1) Ammonia 18mcmol/L (11-34) Glucose (Fingerstick) 108mg/dL (70-99) Laboratory Tests Test 01/11/17 12:40 01/11/17 20:35 01/11/17 21:01 01/12/17 03:37 White Blood Count 15.5x10^3/uL (4.0-11.0) Red Blood Count 4.88x10^6/uL (4.30-5.70) Hemoglobin 14.8g/dL (13.0-17.5) Hematocrit 47.3% (39.0-53.0) Mean Corpuscular Volume 97fL (79-100) Mean Corpuscular Hemoglobin 30pg (25-35) Mean Corpuscular Hemoglobin Concent 31g/dL (31-37) Red Cell Distribution Width 14.6% (11.5-14.5) Platelet Count 230x10^3/uL (140-400) Neutrophils (%) (Auto) 45% (31-73) Lymphocytes (%) (Auto) 45% (24-48) Monocytes (%) (Auto) 7% (0-9) Eosinophils (%) (Auto) 3% (0-3) Basophils (%) (Auto) 1% (0-3) Neutrophils # (Auto) 6.9x10^3uL (1.8-7.7) Lymphocytes # (Auto) 7.0x10^3/uL (1.0-4.8) Monocytes # (Auto) 1.0x10^3/uL (0.0-1.1) Eosinophils # (Auto) 0.4x10^3/uL (0.0-0.7) Basophils # (Auto) 0.1x10^3/uL (0.0-0.2) Prothrombin Time 14.7SEC (11.7-14.0) Prothromb Time International Ratio 1.2 (0.8-1.1) Activated Partial Thromboplast Time 23SEC (24-38) Sodium Level 154mmol/L (136-145) 143mmol/L (136-145) 144mmol/L (136-145) Potassium Level 5.4mmol/L (3.5-5.1) 4.1mmol/L (3.5-5.1) 4.1mmol/L (3.5-5.1) Chloride Level 111mmol/L (98-107) 108mmol/L (98-107) 110mmol/L (98-107) Carbon Dioxide Level 17mmol/L (21-32) 23mmol/L (21-32) 23mmol/L (21-32) Anion Gap 26 (6-14) 12 (6-14) 11 (6-14) Blood Urea Nitrogen 39mg/dL (8-26) 35mg/dL (8-26) 32mg/dL (8-26) Creatinine 2.4mg/dL (0.7-1.3) 2.1mg/dL (0.7-1.3) 1.9mg/dL (0.7-1.3) Estimated GFR (Cockcroft-Gault) 27.1 31.6 35.4 Glucose Level 165mg/dL (70-99) 175mg/dL (70-99) 124mg/dL (70-99) Calcium Level 10.7mg/dL (8.5-10.1) 9.0mg/dL (8.5-10.1) 8.9mg/dL (8.5-10.1) Magnesium Level 2.4mg/dL (1.8-2.4) Total Bilirubin 0.4mg/dL (0.2-1.0) Direct Bilirubin < 0.1mg/dL (0.0-0.2) Aspartate Amino Transf (AST/SGOT) 22U/L (15-37) Alanine Aminotransferase (ALT/SGPT) 32U/L (16-63) Alkaline Phosphatase 38U/L (46-116) Ammonia 225mcmol/L (11-34) Troponin I Quantitative 0.030ng/mL (0.000-0.055) BZ-Etz-W-Type Natriuretic Peptide 491pg/mL (0-124) Total Protein 8.9g/dL (6.4-8.2) Albumin 4.3g/dL (3.4-5.0) Glucose (Fingerstick) 190mg/dL (70-99) Test 01/12/17 07:00 01/12/17 08:10 White Blood Count 12.2x10^3/uL (4.0-11.0) Red Blood Count 4.08x10^6/uL (4.30-5.70) Hemoglobin 12.4g/dL (13.0-17.5) Hematocrit 37.8% (39.0-53.0) Mean Corpuscular Volume 93fL (79-100) Mean Corpuscular Hemoglobin 30pg (25-35) Mean Corpuscular Hemoglobin Concent 33g/dL (31-37) Red Cell Distribution Width 14.1% (11.5-14.5) Platelet Count 173x10^3/uL (140-400) Neutrophils (%) (Auto) 79% (31-73) Lymphocytes (%) (Auto) 14% (24-48) Monocytes (%) (Auto) 6% (0-9) Eosinophils (%) (Auto) 0% (0-3) Basophils (%) (Auto) 1% (0-3) Neutrophils # (Auto) 9.6x10^3uL (1.8-7.7) Lymphocytes # (Auto) 1.7x10^3/uL (1.0-4.8) Monocytes # (Auto) 0.8x10^3/uL (0.0-1.1) Eosinophils # (Auto) 0.0x10^3/uL (0.0-0.7) Basophils # (Auto) 0.1x10^3/uL (0.0-0.2) Sodium Level 147mmol/L (136-145) Potassium Level 4.6mmol/L (3.5-5.1) Chloride Level 112mmol/L (98-107) Carbon Dioxide Level 25mmol/L (21-32) Anion Gap 10 (6-14) Blood Urea Nitrogen 32mg/dL (8-26) Creatinine 2.0mg/dL (0.7-1.3) Estimated GFR (Cockcroft-Gault) 33.4 Glucose Level 113mg/dL (70-99) Calcium Level 9.1mg/dL (8.5-10.1) Ammonia 18mcmol/L (11-34) Glucose (Fingerstick) 108mg/dL (70-99) Assessment/Plan Assessment/Plan IMP SEIZURE HX OF CVA LOS WITH CR OF 2.4 CKD STAGE 3 WITH CR OF 1.4-1.6 HYPERKALEMIA HX OF HTN AND RELATED NEPHROSCLEROSIS PLAN IVF'S RENAL SONOGRAM IF CR IS NOT BETTER CHECK CPK LEVEL CHECK UA UPDATED TRIPP LEYVA MD Jan 12, 2017 12:13
--- NOTE | 2017-01-12 14:13 | RAD ---
PROCEDURE MRI brain without contrast HISTORY New seizure, history of stroke TECHNIQUE Axial diffusion and sagittal T1 weighted images were acquired of the brain. Patient refused to complete further images, no other image sequences obtained. COMPARISON February 08, 2016 FINDINGS Exam is limited due to the limited sequences obtained. There is no restricted diffusion to suggest a recent infarct or cytotoxic edema. There is no midline shift or extra-axial fluid collection. Ventricular size is similar, not significantly dilated. Cerebellar tonsils are normal in location. There is preservation of marrow signal clivus. There is no new abnormality of the pineal gland or pituitary gland. Evaluation for parenchymal signal abnormality is very limited. There is now a fairly large area of encephalomalacia of the right parietal temporal lobes with cortical involvement which has developed since the previous exam. There is mild supratentorial involutional change. IMPRESSION 1. There is no evidence of recent infarct. 2. Comparing with the January 2016 exam, there has been development of fairly large area of encephalomalacia with cortical involvement of the right temporal parietal lobes compatible with previous infarct. Exam is limited due to the limited sequences able to be obtained. Electronically signed by: Ethan Casas MD (Jan 12, 2017 14:11:51)
--- NOTE | 2017-01-12 14:59 | RAD ---
Renal ultrasound, 01/12/2017: History: Acute renal injury The right kidney measures 10.2 cm in length while the left kidney measures 10.9 cm. The patient was unable to fully cooperate, limiting this exam. There is no evidence of hydronephrosis. Several small cysts are present in both kidneys. The largest of these on the right measures 1.7 cm cm and lies in the upper pole. The largest cyst on the left arises from the lower pole and measures 3.4 cm. A similar sized cyst arises from the lateral aspect of the left kidney. The renal parenchymal echogenicity is otherwise within normal limits. The bladder is collapsed and not adequately delineated due to the presence of a Lyn catheter. IMPRESSION: 1. Small bilateral renal cysts. 2. No evidence of renal obstruction.
[2017-01-12 15:00] VITALS: BP 177/81
[2017-01-12 15:05] VITALS: BP 177/81
[2017-01-12 17:08] LABS: BILIRUBIN,URINE NEGATIVE (NEG); GLUCOSE,URINE NEGATIVE (NEG); NITRITE,URINE NEGATIVE (NEG); PH,URINE 5.5; PROTEIN,URINE NEGATIVE (NEG-TRACE); UROBILINOGEN,URINE 0.2 mg/dL (0.2 mg/dL)
[2017-01-12 17:18] LABS: RBC,URINE RARE /HPF (0-2)
[2017-01-12 17:19] LABS: BACTERIA,URINE 0 /HPF (0-FEW); SQUAMOUS EPITHELIAL CELL,UR OCC /LPF; WBC,URINE OCC /HPF (0-4)
[2017-01-12] MEDS ORDERED: ATORVASTATIN CALCIUM 40 MG TABLET. PO SCH (21:00)
--- NOTE | 2017-01-12 23:02 | EEG ---
DATE OF SERVICE: 01/12/2017 EEG NUMBER: [id number] OBJECTIVE: The patient is a 66-year-old male with new onset of seizures. He has a history of right hemispheric stroke. DESCRIPTION: This is a digital study. Electrodes are placed according to the International 10-20 system. Bipolar and referential montages are available. Activation procedures typically include photic stimulation and hyperventilation. INTERPRETATION: The waking background consists of 7-8 Hz, 20-50 microvolt activity, symmetrically distributed over parieto-occipital regions and reactive to eye opening. There is some attenuation of activity over the right frontal region. Stage 1 sleep is achieved with normal electroencephalogram patterns. Hyperventilation and intermittent photic stimulation are noncontributory. IMPRESSION: This electroencephalogram with the patient awake and asleep is abnormal because of a mild, diffuse disturbance of cerebral activity as well as a focal abnormality over the right frontal region. The focal abnormality is consistent with a known history of stroke. The diffuse disturbance is consistent with any of a variety of toxic or metabolic encephalopathies. There is no focal, paroxysmal, or epileptiform activity, otherwise. Thank you for letting us help with the patient's care. PARIS GARCIA MD DR: MARY/flaca JOB#: [id number] / [id number] EDI Herzog MD, SRINIVASA MD
== END 2017-01-12 19:15 | disposition home or self-care (01) | DRG 683 ==
LOC: ER 12:35 → 6 SOUTH 15:00
PROVIDERS: ADMIT Internal Medicine; ATTEND Internal Medicine
DX: N17.9 Acute kidney failure, unspecified (principal); E87.0 Hyperosmolality and hypernatremia; F05 Delirium due to known physiological condition; G40.409 Other generalized epilepsy and epileptic syndromes, not intractable, without status epilepticus; E78.5 Hyperlipidemia, unspecified; E87.5 Hyperkalemia; I12.9 Hypertensive chronic kidney disease with stage 1 through stage 4 chronic kidney disease, or unspecified chronic kidney disease; N18.3 Chronic kidney disease, stage 3 (moderate); Z87.891 Personal history of nicotine dependence; I69.349 Monoplegia of lower limb following cerebral infarction affecting unspecified side; R56.9 Unspecified convulsions
CPT/HCPCS: 36415; 51702; 70450; 70551; 71010; 76770; 80048; 80076; 81001; 82140; 82947; 83735; 83880; 84484; 85027; 85610; 85730; 87040; 93005; 95816; 96361; 96374; J0360; J1953; J2060; J7030; 99285-25